=== PATIENT | female | born 1995 | race African-American/Black ===

== ENCOUNTER 2019-07-03 02:47 | Inpatient (IN) | payer MEDICAID ==
[~2019-07-03] VITALS: Ht 157.5 cm; Wt 68.0 kg
[2019-07-03] MEDS ORDERED: LACTATED RINGERS 1,000 ML IV SCH (03:39)
[2019-07-03] MEDS ORDERED: PENICILLIN G POTASSIUM 5 MMU in DEXT 5% WATER 100 ML IV SCH (04:00)
[2019-07-03 04:21] LABS: CLARITY URINE CLEAR (CLEAR); COLOR URINE YELLOW (YELLOW); KETONES URINE NEGATIVE (NEGATIVE); LEUKOCYTE ESTERASE URINE TRACE (NEGATIVE); NITRITE URINE NEGATIVE (NEGATIVE); OCCULT BLOOD URINE NEGATIVE (NEGATIVE); PROTEIN URINE NEGATIVE (NEGATIVE); SPECIFIC GRAVITY URINE 1.013 (1.005-1.030)
[2019-07-03 04:30] LABS: BASOPHILS % 0.1 % (0.0-2.0); EOSINOPHILS % 1.3 % (0.0-5.0); HEMATOCRIT. 36.6 % (36.0-48.0); HEMOGLOBIN. 12.5 g/dL (12.0-16.0); LYMPHOCYTES % 29.9 % (20.0-50.0); MEAN CORPUSCULAR HEMOGLOBIN 29.4 pg (28.0-32.0); MEAN CORPUSCULAR VOLUME 86.2 fL (81.0-99.0); MEAN PLATELET VOLUME 8.6 fl (7.4-10.4); MONOCYTES % 10.9 % (2.0-8.0); NEUTROPHILS % 57.8 % (40.0-76.0); PLATELET 270 x1000/uL (130-400); RED BLOOD CELL COUNT 4.25 mill/uL (4.2-5.4); RED CELL DISTRIBUTION WIDTH 13.5 % (11.6-14.6)
[2019-07-03 04:31] LABS: *AMPHETAMINES SCREEN URINE NEGATIVE (NEGATIVE); *BARBITURATES SCREEN URINE NEGATIVE (NEGATIVE); *BENZODIAZEPINES SCREEN URINE NEGATIVE (NEGATIVE); *COCAINE SCREEN URINE NEGATIVE (NEGATIVE)
[2019-07-03 04:32] LABS: CANNABINOID URINE SCREEN NEGATIVE (NEGATIVE); METHADONE URINE SCREEN NEGATIVE (NEGATIVE); OPIATES URINE SCREEN NEGATIVE (NEGATIVE); PHENCYCLIDINE URINE SCREEN NEGATIVE (NEGATIVE)
[2019-07-03 04:42] LABS: INR 0.9; PARTIAL THROMBOPLASTIN TIME 30.3 sec (23.4-31.0); PROTHROMBIN TIME 9.9 sec (9.6-11.0)
[2019-07-03] MEDS: TERBUTALINE SULFATE 1MG/ML VIAL SUBCUT PRN ×2 (04:57→05:29)
[2019-07-03] MEDS ORDERED: CITRIC ACID/SODIUM CITRATE SOLN 30ML UDC PO SCH (05:45)
[2019-07-03] MEDS ORDERED: CEFAZOLIN SODIUM 1000MG/VIAL ONE ×2 (05:45→05:46)
[2019-07-03] MEDS ORDERED: MORPHINE SULFATE/PF 1MG/ML 10ML AMP ONE (05:46)
[2019-07-03] MEDS ORDERED: OXYTOCIN 10 UNITS/ML 1ML ONE ×2 (05:46→06:33)
[2019-07-03] MEDS ORDERED: PHENYLEPHRINE HCL 10 MG/ML 1ML (IV VIAL) IV ONE ×2 (05:46→05:51)
[2019-07-03] MEDS ORDERED: GLYCOPYRROLATE 0.2 MG/ML 2ML VIAL ONE (05:46)
[2019-07-03] MEDS ORDERED: EPHEDRINE SULFATE 50MG/ML VIAL ONE (05:46)
[2019-07-03] MEDS ORDERED: FENTANYL CITRATE/PF 50MCG/ML 2ML VIAL ONE (05:46)
[2019-07-03] MEDS ORDERED: ONDANSETRON HCL 4MG/2ML INJ ONE (05:49)
[2019-07-03] MEDS ORDERED: KETOROLAC 60MG/2ML VIAL IM ONE (06:40)
[2019-07-03] MEDS ORDERED: DIPHENHYDRAMINE 50MG/ML VIAL ONE (06:40)
[2019-07-03] MEDS ORDERED: DEXT 5%/LR + PITOCIN 20UNITS/L 1,000 ML IV SCH (07:27)
[2019-07-03] MEDS ORDERED: ONDANSETRON HCL 4MG/2ML INJ IV PRN (07:30)
[2019-07-03] MEDS ORDERED: HEMORRHOIDAL SUPP PR PRN (07:30)
[2019-07-03] MEDS ORDERED: ACETAMINOPHEN WITH CODEINE 300/30MG TABLET PO PRN (07:30)
[2019-07-03] MEDS ORDERED: DIPHENHYDRAMINE 25MG CAPSULE PO PRN (07:30)
[2019-07-03] MEDS ORDERED: IBUPROFEN 400MG TABLET PO PRN (07:30)
[2019-07-03] MEDS ORDERED: LANOLIN OINT 7GM TUBE TOP PRN (07:30)
[2019-07-03] MEDS ORDERED: HYDROCODONE/ACETAMINOPHEN 5/325MG TABLET PO PRN (07:30)
[2019-07-03] MEDS ORDERED: BUTORPHANOL TARTRATE 2 MG/ML VIAL IV PRN (07:45)
[2019-07-03] MEDS ORDERED: NALOXONE HCL 0.4 MG/ML 1ML VIAL IV PRN (07:45)
[2019-07-03] MEDS ORDERED: DIPHENHYDRAMINE 50MG/ML VIAL IM PRN (07:45)
[2019-07-03] MEDS ORDERED: PENICILLIN G POTASSIUM 2.5 MMU in DEXTROSE 5% WATER 50 ML IV SCH (08:00)
[2019-07-03 09:35] VITALS: BP 137/80
[2019-07-03 10:10] VITALS: BP 136/87
[2019-07-03 11:05] VITALS: BP 131/82
[2019-07-03 12:59] LABS: HEPATITIS B SURFACE ANTIGEN NEGATIVE
[2019-07-03] MEDS: KETOROLAC 30MG/ML VIAL IV SCH ×2 (14:10→20:24)
[2019-07-03 15:55] VITALS: BP 123/77
[2019-07-03 20:21] VITALS: BP 118/79
[2019-07-03] MEDS: MAGNESIUM/ALUMINUM HYDROXIDE/SIMETHICONE 30ML UDC PO SCH (20:42)
[2019-07-03] MEDS: SIMETHICONE 80MG TABLET CHEW PO SCH (20:42)
[2019-07-04 00:09] VITALS: BP 119/83
[2019-07-04] MEDS: KETOROLAC 30MG/ML VIAL IV SCH (02:26)
[2019-07-04 04:14] VITALS: BP 127/97
[2019-07-04 07:30] VITALS: BP 136/86
[2019-07-04] MEDS: MAGNESIUM/ALUMINUM HYDROXIDE/SIMETHICONE 30ML UDC PO SCH ×4 (07:30→21:06)
[2019-07-04] MEDS: SIMETHICONE 80MG TABLET CHEW PO SCH ×4 (08:00→21:08)
[2019-07-04 09:55] LABS: BASOPHILS % 0.2 % (0.0-2.0); EOSINOPHILS % 0.8 % (0.0-5.0); HEMATOCRIT. 33.2 % (36.0-48.0); HEMOGLOBIN. 11.2 g/dL (12.0-16.0); LYMPHOCYTES % 12.3 % (20.0-50.0); MEAN CORPUSCULAR HEMOGLOBIN 28.4 pg (28.0-32.0); MEAN CORPUSCULAR VOLUME 84.7 fL (81.0-99.0); MEAN PLATELET VOLUME 7.8 fl (7.4-10.4); MONOCYTES % 9.6 % (2.0-8.0); NEUTROPHILS % 77.1 % (40.0-76.0); PLATELET 229 x1000/uL (130-400); RED BLOOD CELL COUNT 3.92 mill/uL (4.2-5.4); RED CELL DISTRIBUTION WIDTH 13.6 % (11.6-14.6)
[2019-07-04] MEDS: ACETAMINOPHEN WITH CODEINE 300/30MG TABLET PO PRN ×2 (10:35→20:00)
[2019-07-04] MEDS: FERROUS SULFATE 325MG TABLET PO SCH ×2 (13:12→17:24)
[2019-07-04] MEDS: HYDROCODONE/ACETAMINOPHEN 5/325MG TABLET PO PRN ×2 (13:20→18:30)
[2019-07-04 15:04] VITALS: BP 128/82
[2019-07-04] MEDS ORDERED: PENICILLIN G BENZATHINE 2,400,000 UNITS/4ML SYR IM NR (16:30)
[2019-07-04 22:00] VITALS: BP 121/77
[2019-07-05] VITALS: BP 119/79
[2019-07-05 07:30] VITALS: BP 143/99
[2019-07-05] MEDS: SIMETHICONE 80MG TABLET CHEW PO SCH ×4 (08:39→20:41)
[2019-07-05] MEDS: FERROUS SULFATE 325MG TABLET PO SCH ×3 (08:39→17:30)
[2019-07-05] MEDS: HYDROCODONE/ACETAMINOPHEN 5/325MG TABLET PO PRN ×2 (08:39→17:02)
[2019-07-05] MEDS: MAGNESIUM/ALUMINUM HYDROXIDE/SIMETHICONE 30ML UDC PO SCH ×4 (08:40→20:14)
[2019-07-05 16:31] VITALS: BP 132/90
[2019-07-05 22:00] VITALS: BP 128/82
[2019-07-05] MEDS: ACETAMINOPHEN WITH CODEINE 300/30MG TABLET PO PRN (22:04)
[2019-07-06] MEDS ORDERED: IBUP-2028 PO (01:50)
[2019-07-06] MEDS ORDERED: PREN-55 MT (01:50)
[2019-07-06] MEDS ORDERED: FERR325T23 PO (01:50)
[2019-07-06 05:40] VITALS: BP 122/80
[2019-07-06 08:45] VITALS: BP 122/80
[2019-07-06] MEDS: ACETAMINOPHEN WITH CODEINE 300/30MG TABLET PO PRN (08:45)
[2019-07-06] MEDS: FERROUS SULFATE 325MG TABLET PO SCH (08:45)
[2019-07-06] MEDS: MAGNESIUM/ALUMINUM HYDROXIDE/SIMETHICONE 30ML UDC PO SCH (08:45)
[2019-07-06] MEDS: SIMETHICONE 80MG TABLET CHEW PO SCH (08:46)
== END 2019-07-06 12:15 | disposition home or self-care (01) | DRG 540 ==
LOC: 8 EST LDRP 02:47 → OBSVTOIN 02:47 → 8EST 11:37
PROVIDERS: ADMIT Obstetrics & Gynecology; ATTEND Obstetrics & Gynecology
PROC: 10D00Z1 Extraction of Products of Conception, Low, Open Approach (ICD-10-PCS; principal; 2019-07-03)
DX: O34.211 Maternal care for low transverse scar from previous cesarean delivery (principal); O60.14X0 Preterm labor third trimester with preterm delivery third trimester, not applicable or unspecified; Z37.0 Single live birth; Z3A.36 36 weeks gestation of pregnancy
CPT/HCPCS: 36415; 76805; 76818; 80305; 81003; 85025; 86592; 86593; 86703; 86762; 86780; 86850; 86900; 87340; 88307; 99281; J0561; J0595; J0690; J1200; J1885; J2274; J2370; J2405; J2540; J3010; J3105; J3490; J7060